=== PATIENT | male | born 1955 | race Caucasian/White ===

== ENCOUNTER → 2020-02-09 | Outpatient (CLI) | payer OTHER ==
[~2020-02-09] MED LIST: PROTONIX 20 MG20 MG PO
== END ==
LOC: LAB 14:38
PROVIDERS: ATTEND Specialist
DX: Z01.812 Encounter for preprocedural laboratory examination (principal); Z20.828 Contact with and (suspected) exposure to other viral communicable diseases

== ENCOUNTER → 2020-02-14 | Outpatient (CLI) | payer OTHER, BC ==
[~2020-02-14] VITALS: Ht 182.9 cm; Wt 88.5 kg
--- NOTE | 2020-02-16 09:53 | P ---
[facility] [place] [address] PROCEDURE REPORT Name: ERNESTINA TESFAYE Room #: [facility] [id number] Admission: 02/14/20 Attend Phys: Markie Leggett Discharge: Date of : 51 Report #: [id number] THIS REPORT FOR: cc: FAM - Family physician unknown FAM - Family physician unknown Markie Bradley MD ~ CC: Markie Bradley [facility] unknown ERNESTINA CASTILLO MD DATE OF SERVICE: 02/14/2020 PROCEDURE PERFORMED: Colonoscopy with biopsies. HISTORY OF PRESENT ILLNESS: The patient is a 64-year-old male who presents today for a routine screening colonoscopy. He denies any symptoms. Possible positive Cologuard test recently. No family history of colon cancer. Plan is for colonoscopy. DESCRIPTION OF PROCEDURE: The risks and benefits of the procedure were explained to the patient, those risks including but not limited to bleeding, perforation and the risk of sedation. He understood these risks and gave informed consent. Sedation was given using propofol per Anesthesia. Next, a digital rectal exam was initially performed, which was normal. Next, using a standard Olympus colonoscope, the scope was placed in the patient's anus and advanced under direct vision to the cecum. The overall prep was good. In the cecum, there was a 3 mm sessile polyp. This was removed with cold forceps, otherwise normal. The ileocecal valve was normal. In the ascending colon, a 4 mm sessile polyp was noted, also removed with cold forceps. In the transverse colon, a total of 3 polyps ranging from 4-6 mm were noted, all removed by cold forceps, otherwise normal. The descending and sigmoid colon were normal. The rectal mucosa was normal. On retroflexion, no abnormalities were noted. The scope was then withdrawn and the procedure terminated. The patient tolerated the procedure well. IMPRESSION: 1. Small colonic polyps as described above. 2. Otherwise, normal colonoscopy. RECOMMENDATIONS: 1. Await biopsy results. 2. Repeat colonoscopy in [address] [address] PROCEDURE REPORT Name: ERNESTINA TESFAYE Room #: REG [facility] Arturo#: [id number] Admission: 02/14/20 Attend Phys: Markie Leggett Discharge: Date of : 51 Report #: [id number] Thank you for allowing me to participate in his care. <ELECTRONICALLY SIGNED> By: Markie Bradley MD 02/16/20 0953 [id number] 1529 Markie Bradley MD /nt
--- NOTE | 2020-02-16 18:06 | PATH ---
[facility] [place] [address] PATHOLOGY RPT PROCEDURE Name: ERNESTINA LEOS Room #: REG GALINABreanne Guzman.#: [id number] Admission: 02/14/20 Date of : 51 Discharge: Report #: [id number] Path Case #: [id number] [facility] Accession Number: [id number] . 01 Material submitted: . PART A: cecum - POLYP AT CECUM PART B: colon - POLYP AT ASCENDING. Modifiers: ascending PART C: colon - POLYP AT TRANSVERSE X3. Modifiers: transverse . 01 Clinical history: . SCREENING . 02 Diagnosis: A. Polyp, cecum, endoscopic biopsy: - Minute crypt adenoma. - Negative for high-grade dysplasia. . B. Polyp, ascending colon, endoscopic biopsy: - Tubular adenoma. - Negative for high-grade dysplasia. . C. Polyp x 3, transverse, endoscopic biopsy: - Tubular adenoma identified in multiple fragments. - Negative for high-grade dysplasia. (IUV:pit 02/16/2020) QTP 02/16/2020 1354 Local . 02 Electronically signed: . Leah Cox MD, Pathologist NPI- [id number] . 01 Gross description: . A. Received in formalin labeled "Ernestina Leos, polyp at cecum" is a fragment of reeder-brown soft tissue measuring 0.3 x 0.3 x 0.1 cm. The specimen is submitted entirely in A1. . B. Received in formalin labeled "Ernestina Leos, polyp at ascending" are multiple reeder-brown soft tissue fragments measuring in aggregate 0.5 x 0.5 x 0.1 cm. The specimen is submitted entirely in B1. . C. Received in formalin labeled "Ernestina Leos, polyp at transverse" are multiple reeder-brown soft tissue fragments measuring in aggregate 1.7 x 0.6 x 0.1 cm. The specimen is submitted entirely in C1. ([facility] [place] 02/15/2020[place] [facility] 02/15/2020 1300 Local . 02 Pathologist provided ICD-10: D12.0, D12.2, D12.3 [place] [address] PATHOLOGY RPT PROCEDURE Name: ERNESTINA LEOS Room #: REG CLBreanne Morris#: [id number] Admission: 02/14/20 Date of : 51 Discharge: Report #: [id number] Path Case #: [id number] . 02 [facility] . [id number], [id number], [id number] Specimen Comment: A courtesy copy of this report has been sent to [phone] Specimen Comment: Report sent to Performed at: [address], [place] [id number] MD Francois Hardy MD Phone: [phone] Performed at: [address] [id number] MD Leah Cox MD Phone: [phone]
== END | disposition home or self-care (01) ==
LOC: GI 08:59
PROVIDERS: ATTEND Specialist
DX: Z12.11 Encounter for screening for malignant neoplasm of colon (principal); D12.0 Benign neoplasm of cecum; D12.3 Benign neoplasm of transverse colon; D12.2 Benign neoplasm of ascending colon; K21.9 Gastro-esophageal reflux disease without esophagitis; Z98.890 Other specified postprocedural states; Z79.899 Other long term (current) drug therapy; Z87.891 Personal history of nicotine dependence
CPT/HCPCS: 62110; 62900